=== PATIENT | female | born 1985 | race Caucasian/White ===

== ENCOUNTER 2017-07-19 13:49 | Emergency (ER) | payer MEDICAID ==
[~2017-07-19] VITALS: Ht 160 cm; Wt 98.9 kg
[2017-07-19 14:14] VITALS: BP_SYST 126
[2017-07-19] MEDS ORDERED: KETOROLAC TROMETHAMINE 60 MG/2 ML VIAL IM ONE (15:30)
[2017-07-19] MEDS ORDERED: DEXAMETHASONE SOD PHOSPHATE 10 MG/ML VIAL IM ONE (15:30)
[2017-07-19 16:50] VITALS: BP_SYST 126
== END 2017-07-19 16:50 | disposition home or self-care (01) ==
LOC: SED 13:49
DX: J02.9 Acute pharyngitis, unspecified (principal); H66.92 Otitis media, unspecified, left ear; I10 Essential (primary) hypertension
CPT/HCPCS: 36415; 81025; 86403; 87081; 96372; 99284; J1100; J1885

== ENCOUNTER 2017-10-06 14:06 | Emergency (ER) | payer MEDICAID ==
[~2017-10-06] VITALS: Ht 160 cm; Wt 99.8 kg
[2017-10-06 14:15] VITALS: BP_SYST 139
[2017-10-06] MEDS ORDERED: KETOROLAC TROMETHAMINE 60 MG/2 ML VIAL IM ONE (14:45)
[2017-10-06 15:08] VITALS: BP_SYST 131
== END 2017-10-06 15:08 | disposition home or self-care (01) ==
LOC: SED 14:06
DX: M25.561 Pain in right knee (principal); I10 Essential (primary) hypertension; E66.9 Obesity, unspecified; Z68.39 Body mass index [BMI] 39.0-39.9, adult
CPT/HCPCS: 29505; 73564; 81025; 96372; 99284; J1885

== ENCOUNTER 2017-12-01 10:32 | Emergency (ER) | payer MEDICAID ==
[2017-12-01] MEDS ORDERED: ONDANSETRON HCL 4 MG/2 ML VIAL ONE (12:44)
[2017-12-01] MEDS ORDERED: MORPHINE SULFATE 10 MG/ML VIAL ONE (12:46)
[2017-12-01 18:44] LABS: BILIRUBIN,URINE NEGATIVE (NEGATIVE); BLOOD, URINE 3+ (NEGATIVE); CLARITY/URINE CLEAR (CLEAR); COLOR,URINE RED (YELLOW); GLUCOSE,URINE NEGATIVE (NEGATIVE); KETONES,URINE NEGATIVE (NEGATIVE); LEUKOCYTE ESTERASE ,URINE 1+ (NEGATIVE); NITRITE, URINE NEGATIVE (NEGATIVE); PROTEIN URINE 1+ (NEGATIVE); UROBILINOGEN,URINE 0.2 (0.2-1.0)
[2017-12-01 18:52] LABS: BACTERIA,URINE MANY /HPF (None Seen)
[2017-12-02 12:31] LABS: POTASSIUM 3.6 mmol/L (3.5-5.1)
[2017-12-02 12:32] LABS: CALCIUM 9.3 mg/dL (8.4-11.0); CREATININE 0.68 mg/dL (0.55-1.30)
[2017-12-02 12:33] LABS: TOTAL BILIRUBIN 0.7 mg/dL (0.0-1.0)
[2017-12-02 15:45] LABS: HEMATOCRIT 40.1 % (36-48); HEMOGLOBIN 13.5 g/dL (12.0-16.0); MEAN CORPUSCULAR HEMOGLOBIN 28 pg (27-31); MEAN CORPUSCULAR HGB CONC 34 % (32-36); MEAN CORPUSCULAR VOLUME 85 fL (79.0-98.0); RED BLOOD CELL COUNT(AUTO) 4.74 MIL/uL (4.2-6.2); WHITE BLOOD COUNT (AUTO) 7.1 K/uL (4.8-10.8)
[2017-12-02 15:46] LABS: EOSINOPHILS % (AUTO) 1.7 % (0.0-4.0); LYMPHOCYTES % (AUTO) 21.1 % (20.5-51.5); MONOCYTES % (AUTO) 9.7 % (1.7-9.3); NEUTROPHILS % (AUTO) 66.9 % (40.0-70.0); PLATELET COUNT (AUTO) 304 K/uL (130-430); RED CELL DISTRIBUTION WIDTH 11.6 % (9.0-15.0)
[2017-12-02 15:47] LABS: BASOPHILS % (AUTO) 0.6 % (0.0-2.0); EOSINOPHILS # (AUTO) 0.1 K/uL (0.0-0.4); LYMPHOCYTES # (AUTO) 1.5 K/uL (1.0-5.5); MONOCYTES # (AUTO) 0.7 K/uL (0.0-1.0); NEUTROPHILS # (AUTO) 4.8 K/uL (1.8-7.7)
== END 2017-12-01 13:00 | disposition home or self-care (01) ==
LOC: SED 10:32
DX: R10.32 Left lower quadrant pain (principal); J32.9 Chronic sinusitis, unspecified
CPT/HCPCS: 36415; 74176; 80053; 81000; 83690; 84702; 85025; 87086; 99285; J2270; J2405

== ENCOUNTER 2019-03-01 10:55 | Emergency (ER) | payer MEDICAID ==
[~2019-03-01] VITALS: Ht 160 cm; Wt 104.3 kg
[2019-03-01 10:55] VITALS: BP_SYST 145
--- NOTE | 2019-03-01 11:00 | NUR ---
BROUGHT BACK TO BED #8 AND TRIAGED. REPORT GIVEN TO GIVEN TO GENO
--- NOTE | 2019-03-01 11:05 | NUR ---
patient arrived AOx4 with son with c/o throat pain x 4 days. patient stated she was seen by doctor and told she had a cold but things have gotten worse. patient has a horse voice. throat is red without white spots. no fever. denies n/v/d of any kind. no other complaint or injury at this time.
--- NOTE | 2019-03-01 11:05 | NUR ---
ER at bedside examining patient.
--- NOTE | 2019-03-01 12:00 | NUR ---
Patient resting quietly. No acute distress noted.
[2019-03-01 12:35] VITALS: BP_SYST 145
--- NOTE | 2019-03-01 12:35 | NUR ---
Patient given written and verbal discharge instructions and verbalizes understanding. ER MD discussed with patient the results and treatment provided. Patient in stable condition. ID arm band removed. Rx of given. Patient educated on pain management and to follow up with PMD. Pain Scale 6/10; TOLERABLE VERBALIZED. NO OBJECTIVE S/SX OF PAIN OBSERVED. Opportunity for questions provided and answered. Medication side effect fact sheet provided. PATIENT IN GOOD CONDITION AND IN NO ACUTE DISTRESS. PATIENT NOTED WITH A STABLE GAIT.
== END 2019-03-01 12:35 | disposition home or self-care (01) ==
LOC: SED 10:55
DX: J06.9 Acute upper respiratory infection, unspecified (principal); R03.0 Elevated blood-pressure reading, without diagnosis of hypertension
CPT/HCPCS: 36415; 86403; 87081; 99283

== ENCOUNTER 2023-06-18 06:24 | Emergency (ER) | payer MEDICAID ==
[~2023-06-18] VITALS: Ht 160 cm; Wt 111.1 kg
[2023-06-18 06:40] VITALS: BP_SYST 146; PULSE 82; RESP 17; TEMP 97; O2SAT 99
[2023-06-18] MEDS ORDERED: KETOROLAC TROMETHAMINE 30 MG VIAL IVP ONE (07:00)
[2023-06-18] MEDS ORDERED: NACL 0.9% 1,000 ML IV ONE (07:00)
[2023-06-18] MEDS ORDERED: ONDANSETRON HCL 4 MG/2 ML VIAL IVP ONE (07:15)
[2023-06-18] MEDS ORDERED: MORPHINE 4 MG INJ. 4 MG/ML VIAL IVP ONE (07:15)
[2023-06-18 07:17] LABS: BASOPHILS # (AUTO) 0.1 K/uL (0.0-0.2); BASOPHILS % (AUTO) 0.6 % (0.0-2.0); EOSINOPHILS # (AUTO) 0.2 K/uL (0.0-0.4); EOSINOPHILS % (AUTO) 1.6 % (0.0-4.0); HEMATOCRIT 39.5 % (36-48); HEMOGLOBIN 13.3 g/dL (12.0-16.0); LYMPHOCYTES # (AUTO) 1.9 K/uL (1.0-5.5); MEAN CORPUSCULAR HEMOGLOBIN 28 pg (27-31); MEAN CORPUSCULAR HGB CONC 34 % (32-36); MEAN CORPUSCULAR VOLUME 83 fL (79.0-98.0); MONOCYTES # (AUTO) 0.7 K/uL (0.0-1.0); NEUTROPHILS # (AUTO) 6.9 K/uL (1.8-7.7); NEUTROPHILS % (AUTO) 70.8 % (40.0-70.0); PLATELET COUNT (AUTO) 338 K/uL (130-430); RED BLOOD CELL COUNT(AUTO) 4.74 MIL/uL (4.2-6.2); RED CELL DISTRIBUTION WIDTH 12.9 % (9.0-15.0); WHITE BLOOD COUNT (AUTO) 9.7 K/uL (4.8-10.8)
[2023-06-18 07:33] LABS: BILIRUBIN,URINE NEGATIVE (NEGATIVE); BLOOD, URINE 3+ (NEGATIVE); CLARITY/URINE SL CLOUDY (CLEAR); GLUCOSE,URINE NEGATIVE (NEGATIVE); KETONES,URINE TRACE (NEGATIVE); LEUKOCYTE ESTERASE ,URINE 1+ (NEGATIVE); NITRITE, URINE NEGATIVE (NEGATIVE); PH,URINE 5.5 (5.0-8.0); PROTEIN URINE 1+ (NEGATIVE); UROBILINOGEN,URINE 0.2 (0.2-1.0)
[2023-06-18 07:36] LABS: CALCIUM 8.7 mg/dL (8.4-11.0); CREATININE 0.83 mg/dL (0.55-1.30)
[2023-06-18 07:49] LABS: ALBUMIN 3.4 g/dL (3.4-4.8); TOTAL BILIRUBIN 0.8 mg/dL (0.0-1.0)
[2023-06-18 07:54] LABS: COLOR,URINE YELLOW (YELLOW)
[2023-06-18 08:04] LABS: BACTERIA,URINE RARE /HPF (None Seen)
[2023-06-18] MEDS ORDERED: ACET-2634 PO (09:38)
[2023-06-18] MEDS ORDERED: CEPH-548 PO (09:38)
[2023-06-18] MEDS ORDERED: TAMS-11 PO (09:38)
[2023-06-18] MEDS ORDERED: IBUP-1969 PO (09:38)
[2023-06-18] MEDS ORDERED: TAMSULOSIN HCL 0.4 MG CAP PO ONE (09:45)
[2023-06-18] MEDS ORDERED: cephALEXin 500 MG CAPSULE PO ONE (09:45)
[2023-06-18 10:34] VITALS: BP_SYST 132; PULSE 76; RESP 16; TEMP 97.7; O2SAT 96
== END 2023-06-18 10:36 | disposition home or self-care (01) ==
LOC: SED 06:24
DX: N21.1 Calculus in urethra (principal); N13.0 Hydronephrosis with ureteropelvic junction obstruction; I31.9 Disease of pericardium, unspecified; R10.32 Left lower quadrant pain; R11.2 Nausea with vomiting, unspecified; Z79.899 Other long term (current) drug therapy
CPT/HCPCS: 99285; 74176; 96374; 96361; 96375; 80053; 81000; 83690; 85025; 87040; 87086; 36415; 76376; 81025; 83605; J2405; J2270; J7030

== ENCOUNTER 2023-07-20 16:08 | Emergency (ER) | payer MEDICAID ==
[~2023-07-20] VITALS: Ht 157.5 cm; Wt 111.1 kg
[~2023-07-20 16:08] MED LIST: ACET-2634 PO; CEPH-548 PO; IBUP-1969 PO; TAMS-11 PO
[2023-07-20 16:24] VITALS: BP_SYST 152; PULSE 98; RESP 18; TEMP 98.3; O2SAT 96
[2023-07-20] MEDS ORDERED: cefTRIAXone 1 GM in LIDOCAINE 1%, 20 ML MDV 2.1 ML IM ONE (17:15)
[2023-07-20] MEDS ORDERED: KETOROLAC TROMETHAMINE 60 MG/2 ML VIAL IM ONE (17:15)
[2023-07-20 17:31] LABS: BILIRUBIN,URINE NEGATIVE (NEGATIVE); BLOOD, URINE 2+ (NEGATIVE); CLARITY/URINE CLOUDY (CLEAR); COLOR,URINE YELLOW (YELLOW); GLUCOSE,URINE 3+ (NEGATIVE); KETONES,URINE NEGATIVE (NEGATIVE); LEUKOCYTE ESTERASE ,URINE 1+ (NEGATIVE); NITRITE, URINE POSITIVE (NEGATIVE); PH,URINE 5.5 (5.0-8.0); PROTEIN URINE 1+ (NEGATIVE); UROBILINOGEN,URINE 0.2 (0.2-1.0)
[2023-07-20 17:39] LABS: WBC,URINE 50-80 /HPF (0-3)
[2023-07-20 17:40] LABS: BACTERIA,URINE MANY /HPF (None Seen)
[2023-07-20 17:41] LABS: YEAST,URINE Few /HPF (None Seen)
[2023-07-20] MEDS ORDERED: KETOROLAC TROMETHAMINE 30 MG VIAL IVP ONE (17:45)
[2023-07-20] MEDS ORDERED: NACL 0.9% 1,000 ML IV ONE (17:45)
[2023-07-20 18:30] LABS: BASOPHILS % (AUTO) 0.4 % (0.0-2.0); EOSINOPHILS # (AUTO) 0.2 K/uL (0.0-0.4); EOSINOPHILS % (AUTO) 1.4 % (0.0-4.0); HEMATOCRIT 38.6 % (36-48); HEMOGLOBIN 12.6 g/dL (12.0-16.0); LYMPHOCYTES # (AUTO) 2.6 K/uL (1.0-5.5); MEAN CORPUSCULAR HEMOGLOBIN 27 pg (27-31); MEAN CORPUSCULAR HGB CONC 33 % (32-36); MEAN CORPUSCULAR VOLUME 83 fL (79.0-98.0); MONOCYTES % (AUTO) 8.2 % (1.7-9.3); NEUTROPHILS # (AUTO) 7.9 K/uL (1.8-7.7); PLATELET COUNT (AUTO) 357 K/uL (130-430); RED BLOOD CELL COUNT(AUTO) 4.63 MIL/uL (4.2-6.2); RED CELL DISTRIBUTION WIDTH 13.6 % (9.0-15.0); WHITE BLOOD COUNT (AUTO) 11.6 K/uL (4.8-10.8)
[2023-07-20 18:44] LABS: CALCIUM 9.2 mg/dL (8.4-11.0); CREATININE 1.02 mg/dL (0.55-1.30); POTASSIUM 3.9 mmol/L (3.5-5.1)
[2023-07-20 18:49] LABS: ALBUMIN 3.7 g/dL (3.4-4.8); TOTAL BILIRUBIN 0.4 mg/dL (0.0-1.0); TOTAL PROTEIN, SERUM 7.7 g/dL (6.4-8.3)
[2023-07-20] MEDS ORDERED: MORPHINE 4 MG INJ. 4 MG/ML VIAL IVP ONE (19:30)
[2023-07-20] MEDS ORDERED: cefTRIAXone 1 GM VIAL ONE (19:47)
[2023-07-20] MEDS ORDERED: cefTRIAXone 1 GM in D5W 50 ML IV ONE (20:00)
[2023-07-20] MEDS ORDERED: CIPR500T5 PO (20:30)
[2023-07-20] MEDS ORDERED: NAPR-690 PO (20:30)
[2023-07-20 20:38] VITALS: BP_SYST 126; PULSE 82; RESP 17; TEMP 98.3; O2SAT 98
== END 2023-07-20 20:38 | disposition home or self-care (01) ==
LOC: SED 16:08
DX: N12 Tubulo-interstitial nephritis, not specified as acute or chronic (principal); R10.9 Unspecified abdominal pain; R19.7 Diarrhea, unspecified; Z79.899 Other long term (current) drug therapy
CPT/HCPCS: 99285; 74176; 96365; 96375; 96361; 80053; 81000; 85025; 87086; 36415; 76376; 81025; J0696; J1885; J2270; J7030

== ENCOUNTER 2023-11-29 16:08 | Emergency (ER) | payer MEDICAID ==
[~2023-11-29] VITALS: Ht 160 cm; Wt 104.3 kg
[~2023-11-29 16:08] MED LIST changes: +CIPR500T5 PO; +NAPR-690 PO
[2023-11-29 16:27] VITALS: BP_SYST 163; PULSE 84; RESP 18; TEMP 98.3; O2SAT 100
[2023-11-29 17:09] LABS: BASOPHILS % (AUTO) 0.5 % (0.0-2.0); EOSINOPHILS # (AUTO) 0.1 K/uL (0.0-0.4); EOSINOPHILS % (AUTO) 1.4 % (0.0-4.0); HEMATOCRIT 39.2 % (36-48); HEMOGLOBIN 13.5 g/dL (12.0-16.0); LYMPHOCYTES # (AUTO) 1.1 K/uL (1.0-5.5); MEAN CORPUSCULAR HEMOGLOBIN 28 pg (27-31); MEAN CORPUSCULAR HGB CONC 34 % (32-36); MEAN CORPUSCULAR VOLUME 83 fL (79.0-98.0); MONOCYTES # (AUTO) 0.5 K/uL (0.0-1.0); MONOCYTES % (AUTO) 6.4 % (1.7-9.3); NEUTROPHILS # (AUTO) 6.6 K/uL (1.8-7.7); NEUTROPHILS % (AUTO) 78.7 % (40.0-70.0); PLATELET COUNT (AUTO) 376 K/uL (130-430); RED BLOOD CELL COUNT(AUTO) 4.74 MIL/uL (4.2-6.2); RED CELL DISTRIBUTION WIDTH 12.9 % (9.0-15.0); WHITE BLOOD COUNT (AUTO) 8.3 K/uL (4.8-10.8)
[2023-11-29 17:25] LABS: CALCIUM 8.4 mg/dL (8.4-11.0); CREATININE 0.87 mg/dL (0.55-1.30); POTASSIUM 3.9 mmol/L (3.5-5.1)
[2023-11-29 17:25] LABS: BILIRUBIN,URINE NEGATIVE (NEGATIVE); BLOOD, URINE 3+ (NEGATIVE); COLOR,URINE YELLOW (YELLOW); GLUCOSE,URINE NEGATIVE (NEGATIVE); KETONES,URINE NEGATIVE (NEGATIVE); LEUKOCYTE ESTERASE ,URINE TRACE (NEGATIVE); NITRITE, URINE NEGATIVE (NEGATIVE); PROTEIN URINE TRACE (NEGATIVE); UROBILINOGEN,URINE 0.2 (0.2-1.0)
[2023-11-29 18:41] LABS: BACTERIA,URINE FEW /HPF (None Seen); RBC,URINE >100 /HPF (0-3)
[2023-11-29 18:42] LABS: MUCUS,URINE 1+ /LPF (None Seen)
[2023-11-29 18:43] LABS: CLARITY/URINE SLIGHTLY CLOUDY (CLEAR)
[2023-11-29] MEDS ORDERED: TAMS-11 PO (19:01)
[2023-11-29] MEDS ORDERED: HYDR-3917 PO (19:01)
[2023-11-29 19:39] VITALS: PULSE 78; RESP 18; O2SAT 97
== END 2023-11-29 19:39 | disposition home or self-care (01) ==
LOC: SED 16:08
DX: N20.9 Urinary calculus, unspecified (principal); K80.20 Calculus of gallbladder without cholecystitis without obstruction; R10.32 Left lower quadrant pain; Z79.899 Other long term (current) drug therapy
CPT/HCPCS: 36415; 76376; 80048; 81000; 81001; 81015; 81025; 85025; 99284

== ENCOUNTER 2023-12-01 13:10 | Emergency (ER) | payer MEDICAID ==
[~2023-12-01] VITALS: Ht 157.5 cm; Wt 104.8 kg
[~2023-12-01 13:10] MED LIST changes: +HYDR-3917 PO
[2023-12-01 14:15] VITALS: BP_SYST 126; PULSE 80; RESP 19; TEMP 97; O2SAT 97
[2023-12-01 15:04] LABS: BILIRUBIN,URINE NEGATIVE (NEGATIVE); BLOOD, URINE 3+ (NEGATIVE); GLUCOSE,URINE NEGATIVE (NEGATIVE); KETONES,URINE NEGATIVE (NEGATIVE); LEUKOCYTE ESTERASE ,URINE 2+ (NEGATIVE); NITRITE, URINE NEGATIVE (NEGATIVE); PROTEIN URINE NEGATIVE (NEGATIVE); UROBILINOGEN,URINE 0.2 (0.2-1.0)
[2023-12-01 15:07] LABS: CLARITY/URINE CLOUDY (CLEAR); COLOR,URINE STRAW (YELLOW)
[2023-12-01] MEDS ORDERED: KETOROLAC TROMETHAMINE 30 MG VIAL IM ONE (15:15)
[2023-12-01 15:18] LABS: BACTERIA,URINE FEW /HPF (None Seen)
[2023-12-01 15:40] LABS: BASOPHILS # (AUTO) 0.1 K/uL (0.0-0.2); BASOPHILS % (AUTO) 0.8 % (0.0-2.0); EOSINOPHILS # (AUTO) 0.1 K/uL (0.0-0.4); EOSINOPHILS % (AUTO) 0.9 % (0.0-4.0); HEMATOCRIT 39.9 % (36-48); HEMOGLOBIN 13.5 g/dL (12.0-16.0); LYMPHOCYTES # (AUTO) 2.1 K/uL (1.0-5.5); MEAN CORPUSCULAR HEMOGLOBIN 28 pg (27-31); MEAN CORPUSCULAR HGB CONC 34 % (32-36); MEAN CORPUSCULAR VOLUME 83 fL (79.0-98.0); MONOCYTES # (AUTO) 0.6 K/uL (0.0-1.0); NEUTROPHILS # (AUTO) 6.3 K/uL (1.8-7.7); NEUTROPHILS % (AUTO) 68.3 % (40.0-70.0); PLATELET COUNT (AUTO) 390 K/uL (130-430); RED BLOOD CELL COUNT(AUTO) 4.79 MIL/uL (4.2-6.2); RED CELL DISTRIBUTION WIDTH 12.9 % (9.0-15.0); WHITE BLOOD COUNT (AUTO) 9.2 K/uL (4.8-10.8)
[2023-12-01 15:56] LABS: CALCIUM 9.2 mg/dL (8.4-11.0); CREATININE 0.89 mg/dL (0.55-1.30); POTASSIUM 3.3 mmol/L (3.5-5.1)
[2023-12-01 16:00] LABS: ALBUMIN 3.8 g/dL (3.4-4.8); BILIRUBIN,DIRECT 0.1 mg/dL (0.0-0.3); TOTAL BILIRUBIN 0.6 mg/dL (0.0-1.0); TOTAL PROTEIN, SERUM 8.4 g/dL (6.4-8.3)
[2023-12-01] MEDS ORDERED: NITR-85 PO (18:58)
[2023-12-01] MEDS ORDERED: cefTRIAXone 1 GM VIAL IM ONE (19:00)
[2023-12-01] MEDS ORDERED: GYNECR VG (19:28)
[2023-12-01 19:48] VITALS: BP_SYST 124; PULSE 86; RESP 18; TEMP 97.1; O2SAT 97
== END 2023-12-01 19:48 | disposition home or self-care (01) ==
LOC: SED 13:10
DX: N39.0 Urinary tract infection, site not specified (principal); R10.30 Lower abdominal pain, unspecified; R31.9 Hematuria, unspecified; R11.0 Nausea; Z87.442 Personal history of urinary calculi; Z87.19 Personal history of other diseases of the digestive system; Z79.899 Other long term (current) drug therapy
CPT/HCPCS: 99285; 74176; 80076; 80048; 81001; 83690; 85025; 87086; 36415; 81025; 96372; 81000; 81015; J0696; J1885